=== PATIENT | female | born 1985 | race Caucasian/White ===

== ENCOUNTER 2016-04-24 04:12 | Emergency (ER) | payer OTHER ==
[~2016-04-24] VITALS: Ht 165.1 cm; Wt 60.5 kg
[~2016-04-24 04:12] MED LIST: DOXYCYCLINE HY100 MG PO; IBUPROFEN800 MG PO; MOTRIN600 MG PO; MOTRIN800 MG PO; NAPROSYN500 MG PO; NOHOMEMEDS; ORTHO TRI-CY1 TABLE1 PO; PERCOCET 5/31 TABLET PO; PRENATAL VITAM1 EAC3 PO; ZITHROMAX Z-PA250 MG PO; ZOFRAN ODT4 MG PO; ZOLOFT50 MG PO; no home
[2016-04-24 04:15] VITALS: BP 109/66
[2016-04-24] MEDS ORDERED: MEDROL DOSEPAK4 MG PO (05:03)
[2016-04-24] MEDS ORDERED: VENTOLIN HFA18 GM IH (05:03)
[2016-04-24] MEDS ORDERED: ZITHROMAX Z-PA250 MG PO (05:03)
== END 2016-04-24 07:13 | disposition home or self-care (01) ==
LOC: EME 04:12
DX: J20.9 Acute bronchitis, unspecified (principal); F17.200 Nicotine dependence, unspecified, uncomplicated; Z88.0 Allergy status to penicillin; Z88.1 Allergy status to other antibiotic agents
CPT/HCPCS: 94640; 99281; 99284

== ENCOUNTER 2016-09-07 17:01 | Emergency (ER) | payer OTHER ==
[~2016-09-07] VITALS: Ht 165.1 cm; Wt 58.6 kg
[~2016-09-07 17:01] MED LIST changes: +MEDROL DOSEPAK4 MG PO; +VENTOLIN HFA18 GM IH
[2016-09-07 18:08] LABS: ADD MIUA? YES; BILIRUBIN NEGATIVE; BLOOD MODERATE; COLOR YELLOW ((YELLOW)); GLUCOSE (STRIP) NEGATIVE; KETONES NEGATIVE; LEUKOCYTES NEGATIVE; NITRITE NEGATIVE; PROTEIN (STRIP) NEGATIVE; SPECIFIC GRAVITY 1.021 (1.000-1.030); UROBILINOGEN 0.2 MG/DL (0.2-1.0)
[2016-09-07 18:09] LABS: HEMATOCRIT 36.1 % (36.0-46.0); MCH 30.8 PG (29.0-34.0); MCV 93.5 FL (83-99); MEAN PLAT.VOLUME 10.3 uM^3 (9.5-12.4); PLATELET COUNT 159 K/uL (156-360); RBC DIS.WIDTH-CV 13.7 % (11.8-14.6); RBC DIS.WIDTH-SD 46.6 % (39-53); RED BLOOD COUNT 3.86 M/uL (3.80-5.20); WHITE BLOOD COUNT 8.9 K/uL (4.1-10.2)
[2016-09-07 18:23] LABS: BACTERIA RARE /HPF; EPITHELIAL CELLS RARE /HPF; MUCUS TRACE /LPF; RED BLOOD CELLS NONE SEEN /HPF (0-5); UCUL ADDED? NO; WHITE BLOOD CELLS NONE SEEN /HPF (0-5)
[2016-09-07 18:23] LABS: CHLORIDE 109 mEq/L (99-109); POTASSIUM 3.6 mEq/L (3.7-5.4); SODIUM 138 mEq/L (136-147)
[2016-09-07 18:25] LABS: GLUCOSE 82 mg/dL (70-99)
[2016-09-07 18:26] LABS: ANION GAP 2 MEQ/L (2-14)
[2016-09-07 18:27] LABS: TOTAL BILIRUBIN 0.4 mg/dL (0.0-1.0)
[2016-09-07 18:28] LABS: ALKALINE PHOSPHATASE 34 IU/L (3-129)
[2016-09-07 18:29] LABS: GFR ESTIMATE (CALCULATED) > 59 mL/min/
[2016-09-07 18:30] LABS: UREA NITROGEN (BUN) 11 mg/dL (9-23)
[2016-09-07 18:32] LABS: LIPASE 13 U/L (1.0-51.0)
[2016-09-07 18:39] LABS: QUANTITATIVE HCG 8822.6 MIU/ML
[2016-09-07 20:40] VITALS: BP 114/56
[2016-09-10] MEDS ORDERED: PERCOCET 5/31 TABLET PO (09:23)
== END 2016-09-07 20:42 | disposition home or self-care (01) ==
LOC: EME 17:01
PROVIDERS: Physician Assistant Medical
DX: O03.9 Complete or unspecified spontaneous abortion without complication (principal); Z88.0 Allergy status to penicillin; F17.200 Nicotine dependence, unspecified, uncomplicated
CPT/HCPCS: 76801; 80053; 81003; 83690; 84702; 85027; 99281; 99284

== ENCOUNTER 2016-09-10 11:02 | Day surgery (SDC) | payer OTHER ==
[~2016-09-10] VITALS: Ht 165.1 cm; Wt 59.9 kg
[2016-09-10 12:02] VITALS: BP 89/46
[2016-09-10 12:05] VITALS: BP 89/46
[2016-09-10 12:58] VITALS: BP 101/55
[2016-09-10] MEDS ORDERED: IBUPROFEN800 MG PO (14:24)
[2016-09-10 15:10] VITALS: BP 96/47
[2016-09-10 15:57] VITALS: BP 100/58
== END 2016-09-10 16:00 | disposition home or self-care (01) ==
LOC: SDC 11:02
DX: O02.1 Missed abortion (principal); N90.4 Leukoplakia of vulva; N92.6 Irregular menstruation, unspecified; F17.210 Nicotine dependence, cigarettes, uncomplicated; Z88.0 Allergy status to penicillin; Z80.3 Family history of malignant neoplasm of breast; Z83.3 Family history of diabetes mellitus; Z82.49 Family history of ischemic heart disease and other diseases of the circulatory system; Z80.0 Family history of malignant neoplasm of digestive organs
CPT/HCPCS: 88305; J0690; J1100; J1885; J2250; J2405; J3010

== ENCOUNTER 2016-12-05 22:16 | Emergency (ER) | payer OTHER ==
[~2016-12-05] VITALS: Ht 165.1 cm; Wt 58.8 kg
[2016-12-05 22:41] VITALS: BP 115/68
[2016-12-05] MEDS ORDERED: NAPROXEN500 MG PO (23:31)
== END 2016-12-05 23:42 | disposition home or self-care (01) ==
LOC: EXP 22:16 → EME 22:16 → EXP 23:42
DX: S63.501A Unspecified sprain of right wrist, initial encounter (principal); X58.XXXA Exposure to other specified factors, initial encounter; F17.200 Nicotine dependence, unspecified, uncomplicated
CPT/HCPCS: 99281; 99284

== ENCOUNTER 2016-12-26 23:24 | Emergency (ER) | payer OTHER ==
[~2016-12-26] VITALS: Ht 165.1 cm; Wt 57.1 kg
[~2016-12-26 23:24] MED LIST changes: +NAPROXEN500 MG PO
[2016-12-27] MEDS ORDERED: MOTRIN600 MG PO (02:06)
[2016-12-27] MEDS ORDERED: TESSALON PERLE100 MG PO (02:06)
[2016-12-27] MEDS ORDERED: VENTOLIN HFA18 GM IH (02:07)
[2016-12-27 02:31] VITALS: BP 121/70
== END 2016-12-27 02:32 | disposition home or self-care (01) ==
LOC: EME 23:24
DX: J06.9 Acute upper respiratory infection, unspecified (principal); H92.03 Otalgia, bilateral; J02.9 Acute pharyngitis, unspecified; F17.200 Nicotine dependence, unspecified, uncomplicated
CPT/HCPCS: 87651 90; 99281; 99284; J1100

== ENCOUNTER 2017-02-18 00:54 | Emergency (ER) | payer OTHER ==
[~2017-02-18] VITALS: Ht 165.1 cm; Wt 57.2 kg
[~2017-02-18 00:54] MED LIST changes: +TESSALON PERLE100 MG PO
[2017-02-18] MEDS ORDERED: REGLAN10 MG PO (01:53)
[2017-02-18] MEDS ORDERED: IMITREX50 MG PO (01:53)
[2017-02-18 02:12] VITALS: BP 122/62
== END 2017-02-18 02:13 | disposition home or self-care (01) ==
LOC: EXP 00:54 → EME 00:54 → EXP 02:13
DX: G43.909 Migraine, unspecified, not intractable, without status migrainosus (principal); Z88.8 Allergy status to other drugs, medicaments and biological substances; F17.200 Nicotine dependence, unspecified, uncomplicated
CPT/HCPCS: 99281; 99283; J3030

== ENCOUNTER 2017-08-03 15:45 | Emergency (ER) | payer OTHER ==
[~2017-08-03] VITALS: Ht 165.1 cm; Wt 56.5 kg
[~2017-08-03 15:45] MED LIST changes: +IMITREX50 MG PO; +REGLAN10 MG PO
[2017-08-03 16:04] VITALS: BP 123/77
[2017-08-03] MEDS ORDERED: FLEXERIL10 MG PO (17:25)
[2017-08-03] MEDS ORDERED: NAPROSYN500 MG PO (17:25)
== END 2017-08-03 17:58 | disposition home or self-care (01) ==
LOC: EME 15:45
DX: M54.2 Cervicalgia (principal); M25.561 Pain in right knee; Z88.0 Allergy status to penicillin; V49.00XA Driver injured in collision with unspecified motor vehicles in nontraffic accident, initial encounter; Y92.410 Unspecified street and highway as the place of occurrence of the external cause; F17.200 Nicotine dependence, unspecified, uncomplicated
CPT/HCPCS: 72040; 73564; 99281; 99284

== ENCOUNTER 2017-08-13 14:56 | Emergency (ER) | payer OTHER ==
[~2017-08-13] VITALS: Ht 165.1 cm; Wt 59.1 kg
[~2017-08-13 14:56] MED LIST changes: +FLEXERIL10 MG PO
[2017-08-13 15:28] LABS: BASOPHIL (%) 0.5 % (0-1); EOSINOPHIL (%) 1.8 % (0-5); EOSINOPHIL COUNT 0.1 K/uL (0-0.3); HEMATOCRIT 39.7 % (36.0-46.0); HEMOGLOBIN 13.5 G/DL (11.9-15.5); IMMATURE GRANULOCYTE (%) 0.5 % (0.0-0.7); LYMPHOCYTE (%) 42.4 % (15-42); LYMPHOCYTE COUNT 2.8 K/uL (1.0-2.8); MCH 31.6 PG (29.0-34.0); MONOCYTE (%) 5.6 % (3-12); MONOCYTE COUNT 0.4 K/uL (0-0.8); NEUTROPHIL (%) 49.2 % (45-76); NEUTROPHIL COUNT 3.2 K/uL (1.8-6.4); PLATELET COUNT 151 K/uL (156-360); RBC DIS.WIDTH-CV 13.4 % (11.8-14.6); RBC DIS.WIDTH-SD 46.1 % (39-53); RED BLOOD COUNT 4.27 M/uL (3.80-5.20); WHITE BLOOD COUNT 6.6 K/uL (4.1-10.2)
[2017-08-13 15:38] LABS: CHLORIDE 107 mEq/L (99-109); POTASSIUM 3.9 mEq/L (3.7-5.4); SODIUM 139 mEq/L (136-147)
[2017-08-13 15:40] LABS: GLUCOSE 95 mg/dL (70-99)
[2017-08-13 15:43] LABS: CREATININE 0.8 mg/dL (0.6-1.3); GFR ESTIMATE (CALCULATED) > 59 mL/min/
[2017-08-13 15:44] LABS: UREA NITROGEN (BUN) 14 mg/dL (9-23)
[2017-08-13 15:50] LABS: TROP-I INTERPRETATION NEGATIVE; TROPONIN-I < 0.01 ng/mL (0.0-0.30)
[2017-08-13] MEDS ORDERED: MOTRIN800 MG PO (16:27)
[2017-08-13 17:02] VITALS: BP 110/50
== END 2017-08-13 17:03 | disposition home or self-care (01) ==
LOC: EME 14:56
PROVIDERS: Emergency Medicine
DX: R07.89 Other chest pain (principal); F17.200 Nicotine dependence, unspecified, uncomplicated; Z88.0 Allergy status to penicillin; Z88.1 Allergy status to other antibiotic agents
CPT/HCPCS: 71045; 80048; 84484; 85025; 85379; 93005; 99281; 99285